=== PATIENT | female | born 1995 | race Caucasian/White ===

== ENCOUNTER 2022-01-10 06:04 | Inpatient (IN) ==
[2022-01-10] MEDS ORDERED: PITOCIN IVP ONE (07:01)
[2022-01-10] MEDS ORDERED: NUBAIN INJ 200 MG VIAL MULTIDOSE IVP PRN (07:01)
[2022-01-10] MEDS ORDERED: MORPHINE SULFATE INJ 2 MG INJ IVP PRN (07:01)
[2022-01-10] MEDS ORDERED: REGLAN INJ 10 MG VIAL IVP PRN (07:01)
[2022-01-10] MEDS ORDERED: PHENERGAN INJ 25 MG IM PRN ×2 (07:01→13:48)
[2022-01-10] MEDS ORDERED: D5 LR + PITOCIN 10 UNITS/L 10 UNITS/1,000 ML BAG IV PRN (07:01)
[2022-01-10] MEDS ORDERED: D5 1/2 NS 1,000 ML 1,000 ML IV SCH (07:01)
[2022-01-10] MEDS ORDERED: STADOL INJ IVP PRN (07:03)
[2022-01-10] MEDS ORDERED: D5 1/2 NS 1,000 mL + PITOCIN 20 UNITS/L IV 20 UNITS/1,000 ML BAG IV ONE (07:07)
[2022-01-10] MEDS ORDERED: BETADINE SOLN ONE (07:07)
--- NOTE | 2022-01-10 07:13 | DR.OB ---
OB Quick Note - Assessment/Plan Assessment/Plan: L&D 01/10/22 at 6:55am S-No complaint. O-Afebrile,VSS SQY=557 with good LTV, +accel, no decel. CTX=none CVX=2cm/50%/0/VTX AROM with clear fluid. IUPC and FSE placed. A-IUP at 39 4/7 weeks for induction P-Begin pitocin induction Anticipate
[2022-01-10] MEDS ORDERED: REGLAN INJ 10 MG VIAL ONE (09:04)
[2022-01-10] MEDS ORDERED: STADOL INJ ONE (09:04)
[2022-01-10] MEDS ORDERED: NAROPIN EPIDURAL 0.2% 100 ML ONE (09:20)
[2022-01-10] MEDS ORDERED: FENTANYL VIAL INJ 100 mcg ONE (09:20)
[2022-01-10] MEDS ORDERED: LR 1,000 ML IV 1,000 ML IV ONE (09:20)
[2022-01-10] MEDS ORDERED: EPHEDRINE SULFATE INJ ONE (10:36)
[2022-01-10] MEDS ORDERED: XYLOCAINE 1 % (PLAIN) ONE (10:43)
[2022-01-10] MEDS ORDERED: ZOFRAN INJ 4 MG VIAL ONE (12:53)
[2022-01-10] MEDS ORDERED: MOTRIN TAB 800 MG PO PRN (13:48)
--- NOTE | 2022-01-10 13:54 | DR.OB ---
OB Quick Note - Assessment/Plan Assessment/Plan: Delivery Note [employer] 01/10/22 at 13:28 Patient complete and pushing. Head delivered over intact perineum. Nose and mouth bulb suctioned. No nuchal cord. Body delivered over intact perineum. Cord clamped x 2 and cut. handed to attendant. Cord sent for gases. Placenta delivered spontaneously / intact / 3 vessel cord. No CVX tears. A small second degree midline tear noted and repaired with 0-vicryl in usual fashion. Viable female infant, VTX/OA, wt=7'3" and 7/9, stable to NBN. Mother stable to RR. HVJ=[id number].
[2022-01-10] MEDS: D5 1/2 NS 1,000 ML 1,000 ML with PITOCIN 20 UNITS IV SCH ×2 (14:10)
[2022-01-10] MEDS ORDERED: AMBIEN PO PRN (14:34)
[2022-01-10] MEDS ORDERED: MILK OF MAGNESIA PO PRN (14:34)
[2022-01-10] MEDS ORDERED: ADACEL or BOOSTRIX TDaP VACCINE IM ONE (14:34)
[2022-01-10] MEDS ORDERED: DERMOPLAST PAIN RELIEF SPRAY TOP PRN (14:34)
[2022-01-11] MEDS: D5 1/2 NS 1,000 ML 1,000 ML with PITOCIN 20 UNITS IV SCH ×4 (01:15→05:38)
[2022-01-11 05:14] LABS: HEMATOCRIT 36.8 % (36.0-47.0)
[2022-01-11] MEDS ORDERED: PRENATAL PLUS PO SCH (09:00)
[2022-01-11 16:11] VITALS: BP 122/70
== END 2022-01-11 16:00 | disposition home or self-care (01) | DRG 807 ==
LOC: LD 06:04 → MED/SURG 14:35
PROVIDERS: ADMIT Specialist; ATTEND Specialist
DX: Z20.822 Contact with and (suspected) exposure to COVID-19; O70.1 Second degree perineal laceration during delivery; Z3A.39 39 weeks gestation of pregnancy; Z37.0 Single live birth; O26.893 Other specified pregnancy related conditions, third trimester